=== PATIENT | female | born 2000 | race African-American/Black ===

== ENCOUNTER 2021-05-29 23:48 | Inpatient (IN) ==
[2021-05-30] MEDS ORDERED: MEPERIDINE 50 MG/1 ML VIAL IV PRN (00:06)
[2021-05-30] MEDS ORDERED: ONDANSETRON 4 MG/2 ML VIAL IV PRN ×3 (00:06→21:45)
[2021-05-30] MEDS ORDERED: LACTATED RINGERS 1,000 ML IV ONE ×3 (00:06→19:52)
[2021-05-30] MEDS ORDERED: OXYTOCIN/LR 0 UNIT/0 ML BAG IV ONE (00:26)
[2021-05-30 00:53] LABS: Basophils % 0.2 % (0.0-0.8); Eosinophils # 0.1 10*3/uL (0.0-0.87); Eosinophils % 0.7 % (0.00-10.9); Hematocrit 35.5 VOL% (35.7-47.0); Immature Granulocytes % 0.8 %; Immature Granulocytes Absolute 0.07 #; Lymphocytes # 1.4 10*3/uL (1.4-4.0); Lymphocytes % 17.1 % (21.3-54.2); Mean Corpuscular HGB Conc 33.8 GM/DL (32-36); Mean Corpuscular Volume 91.7 FL (87-102); Mean Platelet Volume 11.6 FL (9.6-12.0); Monocytes % 8.3 % (1.7-12.7); Neutrophils % 72.9 % (38.7-73.9); Platelet Count 242 T/CUMM (130-400); Red Blood Count 3.87 MC/CUMM (3.8-5.5); Red Cell Distribution Width 12.4 % (9.3-17.3); White Blood Count 8.2 T/CUMM (4-12)
[2021-05-30 00:54] LABS: Bilirubin,Total 0.4 MG/DL (0.20-1.00); Potassium 3.7 MMOL/L (3.5-5.1); Total Protein 7.5 G/DL (6.4-8.2)
[2021-05-30 01:19] LABS: Atypical Lymphocytes Few; Microcytosis Slight; Platelet Estimate Adequate; Reactive Lymphocytes Few
[2021-05-30] MEDS ORDERED: ePHEDrine 50 MG/ML VIAL IV PRN (09:09)
[2021-05-30] MEDS ORDERED: hydrOXYzine HCL 25 MG/1 ML VIAL IM PRN (09:09)
[2021-05-30] MEDS ORDERED: NALOXONE 0.4 MG/ML VIAL IV PRN (09:09)
[2021-05-30] MEDS ORDERED: diphenhydrAMINE 50 MG/1 ML VIAL IV PRN ×2 (09:09)
[2021-05-30] MEDS ORDERED: CITRIC ACID/SODIUM CITRATE 30 ML UDCUP PO ONE (11:00)
[2021-05-30] MEDS ORDERED: OXYTOCIN/LR 20 UNIT/1,000 ML BAG IV SCH (11:00)
[2021-05-30] MEDS ORDERED: FAMOTIDINE 20 MG/2 ML VIAL IV ONE (11:00)
[2021-05-30] MEDS ORDERED: PROMETHAZINE 25 MG/1 ML VIAL IM PRN (11:30)
[2021-05-30] MEDS: fentaNYL 2 MCG/ROPIV 0.2% EPID 100 ML EPIDURAL SCH ×2 (12:45→19:50)
[2021-05-30] MEDS: LACTATED RINGERS 1,000 ML IV SCH ×2 (13:09→18:46)
[2021-05-30] MEDS ORDERED: ceFAZolin 2,000 MG/50 ML DUPLEX IV ONE (19:58)
[2021-05-30] MEDS ORDERED: OXYTOCIN 10 UNIT/ML VIAL IM ONE (20:20)
[2021-05-30] MEDS ORDERED: LIDOCAINE MPF 2% /EPI 20 ML VIAL ONE (20:50)
[2021-05-30] MEDS ORDERED: ONDANSETRON 4 MG/2 ML VIAL ONE (20:50)
[2021-05-30] MEDS ORDERED: KETOROLAC 30 MG/1 ML VIAL ONE (20:51)
[2021-05-30] MEDS ORDERED: DEXAMETHASONE 4 MG/1 ML VIAL ONE (20:51)
[2021-05-30] MEDS ORDERED: ACETAMINOPHEN INJ 1,000 MG/100 ML VIAL IV ONE (20:51)
[2021-05-30] MEDS ORDERED: TRANEXAMIC ACID 1,000 MG/10 ML VIAL ONE (21:04)
[2021-05-30] MEDS ORDERED: miSOPROStoL 200 MCG TABLET ONE (21:04)
[2021-05-30] MEDS ORDERED: OXYTOCIN/LR 20 UNIT/1,000 ML BAG IV ONE ×2 (21:04→21:45)
[2021-05-30] MEDS ORDERED: METHYLERGONOVINE 0.2 MG/1 ML AMP ONE (21:05)
[2021-05-30] MEDS ORDERED: CARBOPROST TROMETHAMINE 250 MCG/ML AMP IM ONE (21:05)
[2021-05-30] MEDS ORDERED: OXYTOCIN 10 UNIT/ML VIAL ONE (21:21)
[2021-05-30] MEDS ORDERED: PHENYLEPHRINE 1 MG/10 ML SYRINGE IV ONE ×2 (21:36→21:37)
[2021-05-30] MEDS ORDERED: SIMETHICONE CHEW 80 MG TABLET PO PRN (21:45)
[2021-05-30] MEDS ORDERED: IBUPROFEN 800 MG TABLET PO PRN (21:45)
[2021-05-30] MEDS ORDERED: ACETAMINOPHEN 325 MG TABLET PO PRN (21:45)
[2021-05-30] MEDS ORDERED: MAGNESIUM HYDROXIDE SUSP 30 ML UDCUP PO PRN (21:45)
[2021-05-30] MEDS ORDERED: RHO(D) IMMUNE GLOBULIN 300 MCG SYRINGE IM ONE (21:45)
[2021-05-30] MEDS ORDERED: LACTATED RINGERS 1,000 ML IV SCH (22:00)
[2021-05-30] MEDS ORDERED: SODIUM BICARBONATE 10 MEQ/10 ML SYRINGE IV ONE (22:01)
[2021-05-30 22:12] LABS: Cord Arterial Blood HCO3 18.2 MMOL/L
[2021-05-30 22:15] LABS: Cord Venous Blood HCO3 20.6 MMOL/L; Cord Venous Blood PCO2 39.5 MMHG; Cord Venous Blood PO2 26.4
[2021-05-31] MEDS ORDERED: OXYTOCIN/LR 20 UNIT/1,000 ML BAG IV ONE (00:15)
[2021-05-31] MEDS: KETOROLAC 30 MG/1 ML VIAL IV SCH ×3 (05:06→15:17)
[2021-05-31] MEDS: ACETAMINOPHEN 500 MG TABLET PO SCH ×3 (05:07→15:18)
[2021-05-31 05:43] LABS: Basophils % 0.1 % (0.0-0.8); Hematocrit 32.4 VOL% (35.7-47.0); Immature Granulocytes % 0.8 %; Immature Granulocytes Absolute 0.15 #; Lymphocytes # 0.8 10*3/uL (1.4-4.0); Lymphocytes % 4.6 % (21.3-54.2); Mean Corpuscular Volume 92.6 FL (87-102); Mean Platelet Volume 11.9 FL (9.6-12.0); Monocytes % 5.9 % (1.7-12.7); Neutrophils % 88.6 % (38.7-73.9); Platelet Count 201 T/CUMM (130-400); Red Cell Distribution Width 12.3 % (9.3-17.3); White Blood Count 18.4 T/CUMM (4-12)
[2021-05-31 06:16] LABS: Anisocytosis Slight; Band Neutrophils 16 % (0-10); Lymphocytes 7 % (20-55); Platelet Estimate Normal; Segmented Neutrophils 72 % (50-85); Total Cells Counted 100
[2021-05-31 06:17] LABS: Macrocytosis Slight
[2021-05-31] MEDS: MULTIVITAMIN (PRENATAL) TABLET PO SCH (08:44)
[2021-05-31] MEDS: DOCUSATE SODIUM 100 MG CAPSULE PO SCH ×2 (08:44→20:13)
[2021-06-01] MEDS: METOCLOPRAMIDE 10 MG TABLET PO SCH ×2 (03:56→13:06)
[2021-06-01] MEDS ORDERED: MAGNESIUM CITRATE 300 ML BOTTLE PO ONE (03:59)
[2021-06-01 07:51] VITALS: BP 108/68
[2021-06-01] MEDS: DOCUSATE SODIUM 100 MG CAPSULE PO SCH (08:41)
[2021-06-01] MEDS: MULTIVITAMIN (PRENATAL) TABLET PO SCH (08:43)
[2021-06-01] MEDS ORDERED: MAGNESIUM CITRATE 300 ML BOTTLE PO PRN (08:44)
== END 2021-06-01 13:30 | disposition home or self-care (01) | DRG 788 ==
LOC: N.LD 23:48 → N.OB 05-31 00:45
PROVIDERS: ADMIT Obstetrics & Gynecology; ATTEND Obstetrics & Gynecology
PROC: LDCSECT (ICD-10-PCS; 2021-05-30 20:40)